=== PATIENT | male | born 1940 | race Two or more races ===

== ENCOUNTER 2017-10-16 07:21 | Emergency (ER) | payer MEDICARE, OTHER ==
[~2017-10-16] VITALS: Ht 165.1 cm; Wt 74.8 kg
[2017-10-16 07:38] VITALS: BP 107/56
--- NOTE | 2017-10-16 07:51 | NUR ---
CXR DONE AT BEDSIDE
== END 2017-10-16 08:28 | disposition home or self-care (01) ==
LOC: ER 07:27
DX: J06.9 Acute upper respiratory infection, unspecified (principal); E11.9 Type 2 diabetes mellitus without complications; I10 Essential (primary) hypertension; Z88.0 Allergy status to penicillin
CPT/HCPCS: 71045; 99283; A4606; Z7610

== ENCOUNTER 2018-02-10 15:39 | Emergency (ER) | payer MEDICARE, OTHER ==
[~2018-02-10] VITALS: Ht 175.3 cm; Wt 90.7 kg
[2018-02-10 15:39] VITALS: BP 159/82
[2018-02-10] MEDS ORDERED: DEXAMETHASONE SOD PHOSPHATE 10 MG/ML VIAL IV ONE (16:30)
[2018-02-10] MEDS ORDERED: FAMOTIDINE/PF INJ 20 MG/2 ML VIAL IV ONE ×2 (16:30→16:57)
[2018-02-10] MEDS ORDERED: ONDANSETRON HCL/PF 4 MG/2 ML VIAL ONE (16:53)
[2018-02-10] MEDS ORDERED: DEXAMETHASONE SOD PHOSPHATE 10 MG/ML VIAL ONE (16:53)
== END 2018-02-10 18:33 | disposition home or self-care (01) ==
LOC: ER 15:40
DX: T78.40XA Allergy, unspecified, initial encounter (principal); E11.9 Type 2 diabetes mellitus without complications; I10 Essential (primary) hypertension; Z88.0 Allergy status to penicillin; Z60.2 Problems related to living alone
CPT/HCPCS: A4606; J1100; J2405; J3490; J7030; Z7610

== ENCOUNTER 2018-02-11 10:28 | Emergency (ER) | payer MEDICARE, OTHER ==
[~2018-02-11] VITALS: Ht 172.7 cm; Wt 74.8 kg
[2018-02-11 10:33] VITALS: BP 107/69
--- NOTE | 2018-02-11 11:10 | NUR ---
Was seen independently by myself. Subjective: seen for a ? adverse rxn to prednisone w/o significant toxicity Objective: well appearing, in no distress Assessment/plan: discussed in detail with TIARA Bell. I agree with his evaluation and plan
== END 2018-02-11 11:26 | disposition home or self-care (01) ==
LOC: ER 10:29
DX: T78.40XA Allergy, unspecified, initial encounter (principal); I10 Essential (primary) hypertension; E11.9 Type 2 diabetes mellitus without complications; Z60.2 Problems related to living alone; Z88.0 Allergy status to penicillin
CPT/HCPCS: A4606; Z7502; Z7610

== ENCOUNTER 2019-04-04 02:40 | Emergency (ER) | payer MEDICARE, MEDICAID ==
[~2019-04-04] VITALS: Ht 170.2 cm; Wt 76.2 kg
--- NOTE | 2019-04-04 03:46 | NUR ---
BIB SELF FROM HOME. AAOX4. NO SOB, BREATHING EVEN AND UNLABORED. AMBULATORY. C/O FACIAL PAIN S.P GLF YESTERDAY AROUND 3:30PM. PT REPORTS THAT HE TRIPPED AND LANDED ON HIS FACE BREAKING HIS FALL WITH HIS HANDS. PT DENIES KO. NOTED ABRASSION ON BRIDGE AND TIP OF NOSE WITH DRIED BLOOD. PT REPORTS NOSE BLEEDING BUT NO ACTIVE UPON ASSESSMENT. NOTED MULTIPLE ABRASSION ON THE PALM OF BILAT HANDS AND BILAT FORE ARMS. PT ALSO NOTED WITH PURPLISH DISCOLORATION AROUND THE EYES, PT REPORTS THAT HE WAS WEARING SUNGLASSES WHEN HE FELL. POSSIBLE RACOON EYES. NO NEURO DEFICIT UPON ASSESSMENT. TO ER BED 10. MD AT BEDSIDE. PT'S FACE WAS CLEANED FROM DRIED BLOOD
--- NOTE | 2019-04-04 03:50 | NUR ---
PT TO RADIOLOGY ON WHEELCHAIR
[2019-04-04] MEDS ORDERED: TDAP [DIPH/PERTUSSIS/TET] 0.5 ML VIAL IM ONE ×2 (04:00→04:01)
[2019-04-04] MEDS ORDERED: CEPHALEXIN MONOHYDRATE 500 MG CAPSULE PO ONE ×2 (04:30→05:15)
[2019-04-04 05:28] VITALS: BP 147/73
== END 2019-04-04 05:43 | disposition home or self-care (01) ==
LOC: ER 02:47
DX: S02.2XXA Fracture of nasal bones, initial encounter for closed fracture (principal); S00.12XA Contusion of left eyelid and periocular area, initial encounter; S00.11XA Contusion of right eyelid and periocular area, initial encounter; L03.211 Cellulitis of face; E11.9 Type 2 diabetes mellitus without complications; I10 Essential (primary) hypertension; I25.10 Atherosclerotic heart disease of native coronary artery without angina pectoris; Z95.818 Presence of other cardiac implants and grafts; Z88.0 Allergy status to penicillin; Z60.2 Problems related to living alone; W18.39XA Other fall on same level, initial encounter; Y93.89 Activity, other specified; Y92.89 Other specified places as the place of occurrence of the external cause; Y99.8 Other external cause status
CPT/HCPCS: 70450; 70486; 90471; 90715; 99284; A6402

== ENCOUNTER 2024-05-19 12:50 | Inpatient (IN) | payer MEDICARE, MEDICAID ==
[~2024-05-19] VITALS: Ht 172.7 cm; Wt 68.2 kg
[~2024-05-19 12:50] MED LIST: LEVO500T90 PO
[2024-05-19] MEDS: IV NS 0.9% 500 ML BAG IV ONE (13:09)
[2024-05-19 13:50] LABS: BASOPHILS % (AUTO) 0.3 % (0.0-2.0); EOSINOPHILS % (AUTO) 0.2 % (0.0-6.0); HEMATOCRIT 46 % (39-51); HEMOGLOBIN 15.5 g/dL (13.5-17.5); LYMPHOCYTES # (AUTO) 1.3 K/uL (0.8-4.8); LYMPHOCYTES % (AUTO) 15.1 % (20.0-44.0); MEAN CORPUSCULAR HEMOGLOBIN 32 PG (26.0-33.0); MEAN CORPUSCULAR HGB CONC 34 g/dl (31.0-36.0); MEAN CORPUSCULAR VOLUME 93 fL (80-96); MONOCYTES # (AUTO) 0.7 K/uL (0.1-1.30); MONOCYTES % (AUTO) 7.7 % (2.0-12.0); NEUTROPHILS # (AUTO) 6.8 K/uL (1.8-8.9); NEUTROPHILS % (AUTO) 76.7 % (43.0-81.0); PLATELET COUNT (AUTO) 183 K/uL (150-450); RED BLOOD CELL COUNT(AUTO) 4.91 MIL/uL (4.5-6.0); RED CELL DISTRIBUTION WIDTH 14.4 % (11.5-15.0); WHITE BLOOD COUNT (AUTO) 8.8 K/uL (4.3-11.0)
[2024-05-19 14:08] LABS: INR 1.08 (0.91-1.10); PARTIAL THROMBOPLASTIN TIME 23.6 SEC (24.3-34.3); PROTHROMBIN TIME 11.4 SECS (9.2-11.1)
[2024-05-19 14:34] LABS: ALANINE AMINOTRANSFERASE 18 U/L (12-78); ALBUMIN 3.2 g/dL (3.4-5.0); ASPARTATE AMINOTRANSFERASE 15 U/L (15-37); BILIRUBIN,DIRECT 0.4 mg/dL (0.0-0.2); CALCIUM, SERUM 9.3 mg/dL (8.5-10.1)
[2024-05-19 14:47] LABS: LACTIC ACID 2.8 mmol/L (0.4-2.0)
[2024-05-19 14:50] LABS: ALKALINE PHOSPHATASE 93 U/L (46-116); BILIRUBIN,TOTAL 2.4 mg/dL (0.2-1.0); CARBON DIOXIDE 28 mmol/L (21-32); CHLORIDE 101 mmol/L (98-107); CREATININE 1.3 mg/dL (0.6-1.3); GLUCOSE 270 mg/dL (74-106); POTASSIUM 4.1 mmol/L (3.5-5.1); SODIUM SERUM 137 mmol/L (136-145); UREA NITROGEN, BLOOD 27 mg/dL (7-18)
[2024-05-19] MEDS ORDERED: LEVOFLOXACIN 750 MG /D5W 150ML 150 ML IV ONE (15:31)
[2024-05-19] MEDS ORDERED: VANCOMYCIN 1 GM /D5W 250 ML PB IV ONE (15:31)
[2024-05-19] MEDS ORDERED: ATOR40TA PO (15:33)
[2024-05-19] MEDS ORDERED: METF-440 PO (15:33)
[2024-05-19] MEDS ORDERED: ACET-73 PO (15:33)
[2024-05-19] MEDS ORDERED: LISI2.5T2 PO (15:33)
[2024-05-19] MEDS ORDERED: ASPI-1420 PO (15:33)
[2024-05-19] MEDS ORDERED: ACET325T53 PO (15:33)
[2024-05-19] MEDS ORDERED: BUSP5TAB3 PO (15:33)
[2024-05-19] MEDS ORDERED: QUET100T PO (15:33)
[2024-05-19] MEDS ORDERED: LEVO75TA7 PO (15:33)
[2024-05-19] MEDS: IV NS 0.9% 1,000 ML BAG IV ONE (15:35)
[2024-05-19] MEDS: LEVOFLOXACIN 750 MG /D5W 150ML PIGGYBACK IV ONE (15:40)
[2024-05-19 15:51] LABS: APPEARANCE,URINE CLEAR (CLEAR); BILIRUBIN,URINE NEGATIVE (NEGATIVE); BLOOD, URINE 2+ Ery/uL (NEGATIVE); COLOR,URINE YELLOW (YELLOW); KETONES,URINE NEGATIVE (NEGATIVE); LEUKOCYTE ESTERASE ,URINE NEGATIVE (NEGATIVE); NITRITE, URINE NEGATIVE (NEGATIVE); PROTEIN,URINE NEGATIVE (NEGATIVE); UGLUCOSE 1+ mg/dL (NEGATIVE); UROBILINOGEN,URINE 0.2 EU/dL (0.2)
[2024-05-19] MEDS ORDERED: DEXTROSE 50%-WATER 50 ML DISP.SYRIN IV PRN ×2 (16:00→20:00)
[2024-05-19] MEDS ORDERED: MAG HYDROX/AL HYDROX/SIMETH 30 ML UDC PO PRN (16:00)
[2024-05-19] MEDS ORDERED: LEVOFLOXACIN 750 MG /D5W 150ML 750 MG in PREMIX 1 EA IV SCH (16:00)
[2024-05-19] MEDS ORDERED: Z GUARD REMEDY 4 OZ OINT TP PRN (16:00)
[2024-05-19] MEDS ORDERED: MAGNESIUM HYDROXIDE 30 ML UDC PO PRN (16:00)
[2024-05-19] MEDS ORDERED: ACETAMINOPHEN 325 MG TABLET PO PRN (16:00)
[2024-05-19 16:13] LABS: ADD URINE CULTURE NO; BACTERIA,URINE 1+ /HPF (None Seen); MUCUS,URINE Few /LPF (None Seen); RBC,URINE 21-50 /HPF (0-2)
[2024-05-19] MEDS: VANCOMYCIN 1 GM in IV D5W 250 ML IV ONE (17:10)
[2024-05-19] MEDS: BLOOD SUGAR DIAGNOSTIC 1 EACH STRIP IN SCH ×2 (18:58→23:04)
[2024-05-19] MEDS: VANCOMYCIN 500 MG in IV D5W 100ml IV ONE (19:00)
[2024-05-19] MEDS: INSULIN REGULAR, HUMAN 100 UNIT/ML 3 ML VIAL SQ PRN ×2 (19:07→23:00)
[2024-05-19 20:00] VITALS: BP 110/60; TEMP 98.6; O2SAT 99
[2024-05-19] MEDS: ATORVASTATIN 40 MG TABLET PO SCH (21:38)
[2024-05-19] MEDS: IV NS 0.9% 1,000 ML IV PRN (23:06)
[2024-05-20 04:00] VITALS: BP 116/67; TEMP 97.7; O2SAT 97
[2024-05-20 07:11] LABS: BASOPHILS % (AUTO) 0.1 % (0.0-2.0); EOSINOPHILS # (AUTO) 0.1 K/uL (0.0-0.7); EOSINOPHILS % (AUTO) 0.9 % (0.0-6.0); HEMATOCRIT 41 % (39-51); HEMOGLOBIN 14.1 g/dL (13.5-17.5); LYMPHOCYTES # (AUTO) 1.6 K/uL (0.8-4.8); LYMPHOCYTES % (AUTO) 21.2 % (20.0-44.0); MEAN CORPUSCULAR HEMOGLOBIN 32 PG (26.0-33.0); MEAN CORPUSCULAR HGB CONC 34 g/dl (31.0-36.0); MEAN CORPUSCULAR VOLUME 92 fL (80-96); MONOCYTES # (AUTO) 0.8 K/uL (0.1-1.30); NEUTROPHILS # (AUTO) 5.1 K/uL (1.8-8.9); NEUTROPHILS % (AUTO) 66.8 % (43.0-81.0); PLATELET COUNT (AUTO) 185 K/uL (150-450); RED BLOOD CELL COUNT(AUTO) 4.47 MIL/uL (4.5-6.0); WHITE BLOOD COUNT (AUTO) 7.7 K/uL (4.3-11.0)
[2024-05-20 07:51] LABS: CALCIUM, SERUM 8.3 mg/dL (8.5-10.1); CARBON DIOXIDE 29 mmol/L (21-32); CHLORIDE 107 mmol/L (98-107); GLUCOSE 137 mg/dL (74-106); MAGNESIUM 1.5 mg/dL (1.8-2.4); PHOSPHORUS 2.2 mg/dL (2.5-4.9); POTASSIUM 3.2 mmol/L (3.5-5.1); SODIUM SERUM 143 mmol/L (136-145); UREA NITROGEN, BLOOD 14 mg/dL (7-18)
[2024-05-20] MEDS: ASPIRIN EC 81 MG TABLET.DR PO SCH (08:42)
[2024-05-20] MEDS: LEVOTHYROXINE SODIUM 75 MCG TABLET PO SCH (08:42)
[2024-05-20] MEDS: QUETIAPINE FUMARATE 100 MG TABLET PO SCH (08:42)
[2024-05-20] MEDS: busPIRone 5 MG TABLET PO SCH (08:42)
[2024-05-20] MEDS: LISINOPRIL (5MG) 5 MG TABLET PO SCH (08:43)
[2024-05-20] MEDS: POTASSIUM CHLORIDE 20 MEQ TAB.PRT.SR PO SCH (10:45)
[2024-05-20] MEDS: MAGNESIUM OXIDE 400 MG TABLET PO ONE (10:45)
[2024-05-20] MEDS: K PHOS NEUTRAL 250 MG TABLET PO ONE (15:55)
[2024-05-20] MEDS: VANCOMYCIN 1 GM in IV D5W 250 ML IV SCH (19:01)
[2024-05-21 07:28] LABS: BASOPHILS % (AUTO) 0.2 % (0.0-2.0); EOSINOPHILS # (AUTO) 0.1 K/uL (0.0-0.7); EOSINOPHILS % (AUTO) 1.2 % (0.0-6.0); HEMATOCRIT 42 % (39-51); HEMOGLOBIN 14.3 g/dL (13.5-17.5); LYMPHOCYTES # (AUTO) 2.2 K/uL (0.8-4.8); MEAN CORPUSCULAR HEMOGLOBIN 32 PG (26.0-33.0); MEAN CORPUSCULAR HGB CONC 34 g/dl (31.0-36.0); MEAN CORPUSCULAR VOLUME 92 fL (80-96); MONOCYTES # (AUTO) 0.8 K/uL (0.1-1.30); NEUTROPHILS # (AUTO) 5.4 K/uL (1.8-8.9); NEUTROPHILS % (AUTO) 63.6 % (43.0-81.0); PLATELET COUNT (AUTO) 167 K/uL (150-450); RED BLOOD CELL COUNT(AUTO) 4.54 MIL/uL (4.5-6.0); RED CELL DISTRIBUTION WIDTH 14.2 % (11.5-15.0); WHITE BLOOD COUNT (AUTO) 8.4 K/uL (4.3-11.0)
[2024-05-21 07:55] LABS: CALCIUM, SERUM 8.3 mg/dL (8.5-10.1); CARBON DIOXIDE 25 mmol/L (21-32); CHLORIDE 110 mmol/L (98-107); CREATININE 0.9 mg/dL (0.6-1.3); GLUCOSE 153 mg/dL (74-106); MAGNESIUM 1.6 mg/dL (1.8-2.4); PHOSPHORUS 2.7 mg/dL (2.5-4.9); POTASSIUM 3.7 mmol/L (3.5-5.1); SODIUM SERUM 143 mmol/L (136-145); UREA NITROGEN, BLOOD 11 mg/dL (7-18)
[2024-05-21 08:00] VITALS: BP 130/65; TEMP 97.5; O2SAT 95
[2024-05-21] MEDS: VANCOMYCIN 1 GM in IV D5W 250 ML IV SCH (11:00)
[2024-05-21] MEDS: MAGNESIUM OXIDE 400 MG TABLET PO ONE (11:13)
[2024-05-21] MEDS ORDERED: LEVOFLOXACIN 750 MG /D5W 150ML 750 MG in PREMIX 1 EA IV SCH (15:00)
[2024-05-21] MEDS: LEVOFLOXACIN 500 MG /D5W 100ML 500 MG in PREMIX 1 EA IV SCH (15:00)
[2024-05-21 16:33] VITALS: BP 137/78; TEMP 97.7; O2SAT 95
[2024-05-21] MEDS: OLANZAPINE 2.5 MG TABLET PO SCH ×2 (17:00→22:06)
[2024-05-21 20:00] VITALS: BP 151/89; TEMP 97.8; O2SAT 98
[2024-05-22 04:00] VITALS: BP 127/70; TEMP 98.3; O2SAT 95
[2024-05-22 09:16] VITALS: BP 121/93
[2024-05-22] MEDS ORDERED: CIPR-262 PO (11:48)
[2024-05-22] MEDS ORDERED: OLAN2.5T3 PO (11:50)
[2024-05-22 12:00] VITALS: TEMP 98
[2024-05-22] MEDS ORDERED: CIPROFLOXACIN HCL 500 MG TABLET PO SCH ×2 (12:00→21:00)
[2024-05-22 12:38] LABS: CALCIUM, SERUM 8.9 mg/dL (8.5-10.1); CARBON DIOXIDE 24 mmol/L (21-32); CHLORIDE 101 mmol/L (98-107); CREATININE 0.9 mg/dL (0.6-1.3); GLUCOSE 270 mg/dL (74-106); MAGNESIUM 1.8 mg/dL (1.8-2.4); POTASSIUM 3.3 mmol/L (3.5-5.1); SODIUM SERUM 136 mmol/L (136-145); UREA NITROGEN, BLOOD 13 mg/dL (7-18)
[2024-05-22] MEDS: OLANZAPINE 10 MG VIAL IM ONE (13:43)
== END 2024-05-22 15:50 | DRG 871 ==
LOC: ER 13:08 → MEDSG1 17:09
PROVIDERS: ADMIT Nurse Practitioner Acute Care; ATTEND Nurse Practitioner Acute Care
DX: A41.9 Sepsis, unspecified organism (principal); G93.41 Metabolic encephalopathy; E44.1 Mild protein-calorie malnutrition; E87.20 Acidosis, unspecified; N39.0 Urinary tract infection, site not specified; F03.911 Unspecified dementia, unspecified severity, with agitation; F03.92 Unspecified dementia, unspecified severity, with psychotic disturbance; F05 Delirium due to known physiological condition; E03.9 Hypothyroidism, unspecified; I10 Essential (primary) hypertension; I25.10 Atherosclerotic heart disease of native coronary artery without angina pectoris; Z95.1 Presence of aortocoronary bypass graft; Z88.0 Allergy status to penicillin; R79.89 Other specified abnormal findings of blood chemistry; R74.01 Elevation of levels of liver transaminase levels; Z86.73 Personal history of transient ischemic attack (TIA), and cerebral infarction without residual deficits; E78.5 Hyperlipidemia, unspecified; E11.9 Type 2 diabetes mellitus without complications; E88.09 Other disorders of plasma-protein metabolism, not elsewhere classified; B96.89 Other specified bacterial agents as the cause of diseases classified elsewhere; F29 Unspecified psychosis not due to a substance or known physiological condition
CPT/HCPCS: 36415; 70450-TC; 71045-TC; 80048-TC; 80076-TC; 80202-TC; 81001; 82962-TC; 83605-TC; 83735-TC; 84100-TC; 84484-TC; 85025-TC; 85730-TC; 87040-TC; 87086-TC; 97116-TC; 97530-TC; A4216; A4223; G0378; J1815; J1956; J3370; J3490; J7030; J7060